=== PATIENT | female | born 1985 | race African-American/Black ===

== ENCOUNTER 2018-07-27 07:17 | Emergency (ER) | payer BC, OTHER ==
--- NOTE | 2018-07-27 08:35 | RAD ---
CHEST 2 VIEWS: Date: 07/27/18 HISTORY: Dyspnea. Cough. COMPARISON: 02/14/17. FINDINGS: Cardiac silhouette and pulmonary vasculature are unremarkable. Mediastinum is midline. No confluent a ir space consolidation, pneumothorax, or pleural fluid are apparent. escalator service mechanic leads overlie th e chest. IMPRESSION: No active cardiopulmonary abnormalities are demonstrated. POS: H
[2018-07-27] MEDS ORDERED: predniSONE 20 MG TAB ONE (08:55)
== END 2018-07-27 09:04 | disposition home or self-care (01) ==
LOC: ERS 07:17
DX: J45.901 Unspecified asthma with (acute) exacerbation (principal); E03.9 Hypothyroidism, unspecified
CPT/HCPCS: 71046; 94640; J7506; J7620

== ENCOUNTER 2019-04-09 21:57 | Emergency (ER) | payer BC, OTHER ==
[2019-04-09] MEDS ORDERED: Acetaminophen 500 MG TAB ONE (22:43)
[2019-04-09 22:56] LABS: BHCG - Serum Negative (NEGATIVE); Pregs Control Background? CLEAR/WHITE (CLR/WHITE); Pregs Control Bar Appear? YES (CONTROL BAR)
[2019-04-09 23:00] LABS: #Basophils 0.1 thou/uL (0.0-0.2); #Eosinphils 0.7 thou/uL (0.0-0.7); #Lymphocytes 2.9 thou/uL (1.20-3.40); #Monocytes 0.8 thou/uL (0.11-0.59); #Neutrophils 4.1 thou/uL (1.40-6.50); %Basophils 1.4 % (0.0-1.0); %Eosinophils 8.7 % (0.0-10.0); %Lymphocytes 33.3 % (21.0-51.0); %Monocytes 8.7 % (0.0-10.0); Hemoglobin 10.5 g/dL (12.0-16.0); MDiff Complete? YES; Mean Corpuscular Hemoglobin 24.9 pg (27.0-31.0); Mean Corpuscular Volume 77.8 fL (78.0-98.0); Mean Platelet Volume 5.7 fL (7.4-10.4); Microcytosis SLIGHT = 6-15 cells (100X) (0-5/hpf); Platelet Count 408 thou/uL (130-400); RBC Distribution Width 15.4 % (11.5-14.5); Red Blood Cell (RBC) Count 4.22 mill/uL (4.20-5.40); White Blood Cell (WBC) Count 8.6 thou/uL (4.8-10.8)
[2019-04-09 23:04] LABS: ALT (SGPT) 13 U/L (8-55); AST (SGOT) 18 U/L (5-34); Albumin 3.7 g/dL (3.5-5.0); Alkaline Phosphatase 53 U/L (40-150); Anion Gap 12 mmol/L (10-20); BUN (Urea Nitrogen) 8 mg/dL (7.0-18.7); Bilirubin, Total 0.3 mg/dL (0.2-1.2); Calc. Creatinine Clearance 0 mL/min (70-130); Calcium 9.3 mg/dL (7.8-10.44); Carbon Dioxide 25 mmol/L (22-29); Chloride 106 mmol/L (98-107); Estimated GFR-MDRD Greater than 90; Globulin 3.5 g/dL (2.4-3.5); Glucose 89 mg/dL (70-105); Protein, Total 7.2 g/dL (6.0-8.3); Sodium 139 mmol/L (136-145)
--- NOTE | 2019-04-09 23:04 | RAD ---
Left thumb HISTORY: Left thumb injury. FINDINGS: Joint spaces are preserved. No acute fracture, dislocation, or radiopaque bodies IMPRESSION: No acute osseous abnormalities are demonstrated.
--- NOTE | 2019-04-09 23:17 | RAD ---
Right knee 4 views HISTORY: Fall. Right knee injury. FINDINGS: Joint spaces are preserved. No acute fracture, dislocation, or fluid distention of the supr apatellar bursa are apparent. IMPRESSION: No acute osseous abnormalities are demonstrated.
--- NOTE | 2019-04-09 23:20 | CT ---
CT head noncontrast HISTORY: Fall. Head injury. FINDINGS: There is no evidence of acute intracranial hemorrhage or infarct. The ventricles appear nor mal in size, shape and position. There is no mass effect or shift of midline structures. Fluid layers in the dependent portion of the left maxillary sinus and right side of the sphenoid sinus. IMPRESSION: No acute intracranial abnormalities are demonstrated. Fluid within the left maxillary and right sphenoid sinuses. Sinusitis?
[2019-04-09] MEDS ORDERED: Ketorolac Tromethamine 60 MG/2 ML VIAL ONE (23:25)
--- NOTE | 2019-04-09 23:26 | CT ---
CT cervical spine noncontrast HISTORY: Fall. Neck injury. FINDINGS: Vertebral body heights are maintained. Gentle reversal of the normal lordotic curvature. Ce rvicothoracic junction is intact. No acute fracture or dislocation. IMPRESSION: No acute osseous abnormalities are demonstrated.
== END 2019-04-09 23:36 | disposition home or self-care (01) ==
LOC: SCSER 21:57
DX: S80.01XA Contusion of right knee, initial encounter (principal); S80.812A Abrasion, left lower leg, initial encounter; D64.9 Anemia, unspecified; R51 Headache; M62.838 Other muscle spasm; W13.9XXA Fall from, out of or through building, not otherwise specified, initial encounter
CPT/HCPCS: 36415; 70450; 72125; 80053; 84703; 85025; 93005; 96372; J1885

== ENCOUNTER 2019-06-23 20:43 | Emergency (ER) | payer OTHER, SELFPAY ==
[2019-06-23 21:16] LABS: #Eosinphils 0.2 thou/uL (0.0-0.7); #Lymphocytes 1.4 thou/uL (1.20-3.40); #Monocytes 1.1 thou/uL (0.11-0.59); #Neutrophils 5.2 thou/uL (1.40-6.50); %Basophils 0.6 % (0.0-1.0); %Eosinophils 2.1 % (0.0-10.0); %Monocytes 13.8 % (0.0-10.0); %Neutrophils 65.5 % (42.0-75.0); Hemoglobin 11.5 g/dL (12.0-16.0); Mean Corpuscular HGB CONC 33.2 g/dL (32.0-36.0); Mean Corpuscular Hemoglobin 26.2 pg (27.0-31.0); Mean Corpuscular Volume 79.2 fL (78.0-98.0); Mean Platelet Volume 7.1 fL (7.4-10.4); Platelet Count 374 thou/uL (130-400); RBC Distribution Width 15.5 % (11.5-14.5); Red Blood Cell (RBC) Count 4.37 mill/uL (4.20-5.40); White Blood Cell (WBC) Count 7.9 thou/uL (4.8-10.8)
--- NOTE | 2019-06-23 21:20 | RAD ---
EXAM: Single view of the chest HISTORY: Fever, chills and cough COMPARISON: 12/20/2015 FINDINGS: Single view of the chest shows a normal sized cardiomediastinal silhouette. There is an inf iltrate seen in the right lower lobe. No pleural effusion is seen. The bones are unremarkable. IMPRESSION: Right lower lobe infiltrate
[2019-06-23 21:39] LABS: ALT (SGPT) 16 U/L (8-55); AST (SGOT) 23 U/L (5-34); Alkaline Phosphatase 48 U/L (40-150); Anion Gap 13 mmol/L (10-20); BUN (Urea Nitrogen) 9 mg/dL (7.0-18.7); Bilirubin, Total 0.2 mg/dL (0.2-1.2); Calc. Creatinine Clearance 0 mL/min (70-130); Calcium 9.2 mg/dL (7.8-10.44); Carbon Dioxide 26 mmol/L (22-29); Chloride 102 mmol/L (98-107); Estimated GFR-MDRD Greater than 90; Globulin 3.7 g/dL (2.4-3.5); Glucose 131 mg/dL (70-105); Potassium 3.5 mmol/L (3.5-5.1); Protein, Total 7.7 g/dL (6.0-8.3); Sodium 137 mmol/L (136-145)
[2019-06-23 22:06] LABS: Free T4 (Free Thyroxine) 1.17 ng/dL (0.70-1.48); Thyroid Stimulating Hormone 1.1548 uIU/mL (0.35-4.94)
[2019-06-23] MEDS ORDERED: methylPREDNISolone Sod Succ/PF 125 MG/2 ML VIAL ONE (22:18)
[2019-06-23] MEDS ORDERED: cefTRIAXone\\ROCEPHIN 1 GM VIAL ONE (22:18)
[2019-06-23] MEDS ORDERED: Ondansetron PF 4 MG/2 ML Vial ONE (22:18)
[2019-06-23 22:40] LABS: Bilirubin Negative (Negative); Blood, Urine Negative (Negative); Clarity Turbid (Clear); Glucose, Urine (Dipstick) Normal (Negative); Leukocyte 75 Leu/uL (Negative); Mucous/LPF 3+ LPF (<2+); Nitrite Negative (Negative); Protein, Urine (Dipstick) 70 mg/dL (Neg-Trace); RBC/HPF 0-3 HPF (0-3)
[2019-06-23 22:46] LABS: Bacteria/HPF 3+ HPF (None Seen)
[2019-06-23 22:48] LABS: Calcium Oxalate Crystals Rare HPF (None Seen); Pregnancy Test - Urine (BHCG) Negative (Negative); Pregu Control Background? CLEAR/WHITE (CLR/WHITE); Pregu Control Bar Appear? YES (CONTROL BAR); Specific Gravity 1.041 (1.002-1.036); Yeast-Budding 1+ HPF (None Seen)
[2019-06-23 22:49] LABS: Yeast-Hyphae Rare HPF (None Seen)
== END 2019-06-24 | disposition home or self-care (01) ==
LOC: ERS 20:43
DX: J18.9 Pneumonia, unspecified organism (principal); J45.909 Unspecified asthma, uncomplicated; E05.90 Thyrotoxicosis, unspecified without thyrotoxic crisis or storm; Z79.899 Other long term (current) drug therapy
CPT/HCPCS: 36415; 71045; 80053; 81003; 81015; 81025; 84439; 84443; 85025; 94640; 96361; 96365; 96375; J0696; J2405; J2930; J7620